=== PATIENT | male | born 1985 | race Caucasian/White ===

== ENCOUNTER 2016-11-26 09:06 | Emergency (ER) | payer OTHER ==
[2016-11-26 09:21] VITALS: BP 145/93
--- NOTE | 2016-11-26 09:31 | EDM.PDOC ---
ED HPI HEAD INJURY - General Chief Complaint: Head Injury Stated Complaint: CONCUSSION Time Seen by Provider: 11/26/16 09:21 Source of Information: Reports: Patient History Limitations: Reports: No limitations - History of Present Illness INITIAL COMMENTS - FREE TEXT/NARRATIVE: This 31 yo male patient reports to the ED from [facility] due to a slip on the ice, hitting the back of his head and having some memory difficulties. The patient reports he is feeling well at this time with no memory problems. The patient reports no additional symptoms or concerns at this time. Symptom Onset Date: 11/26/16 Symptom Onset Time: 08:30 Timing/Duration: Reports: Improving Location: Reports: occipital Quality: Reports: ache, dull Severity: mild Place of Occurrence: work ([employer]) Improves with: none Worsens with: none Context: Reports: fall Associated Symptoms: Reports: no other symptoms - Related Data Allergies/ADRs: Allergies Allergy/AdvReac Type Severity Reaction Status Date / Time No Known Allergies Allergy Verified 11/26/16 09:23 Home Meds: Home Meds . [No Known Home Meds] 11/26/16 [History] ED ROS GENERAL - Review of Systems Review Of Systems: ROS reveals no pertinent complaints other than HPI. ED EXAM, HEAD INJURY - Physical Exam Exam: See Below Exam Limited By: No limitations General Appearance: alert, WD/WN, no apparent distress Head: atraumatic, normocephalic Nexus Criteria: No: posterior, midline cervical tenderness, evidence of intoxication, altered level of consciousness, focal neurological deficit, painful distracting injuries Eyes: bilateral eye: EOMI, normal inspection, PERRL Ears: normal external exam, normal canal, hearing grossly normal, normal TMs Nose: normal inspection, normal mucousa, no blood Throat/Mouth: Normal inspection, Normal lips, Normal teeth, Normal gums, Normal oropharynx, Normal voice, No airway compromise Neck: non-tender, full range of motion, normal alignment, normal inspection Respiratory: no respiratory distress, lungs clear, normal breath sounds, no accessory muscle use, chest non-tender Cardiovascular: normal peripheral pulses, regular rate, rhythm, no edema, no gallop, no JVD, no murmur, no rub GI/Abdominal Exam (Abbreviated): normal bowel sounds, soft, non tender, no organomegaly, no distention, no abnormal bruit, no mass (Male) Exam: Deferred Rectal (Males) Exam: Deferred Back Exam: full range of motion, normal inspection, NT Extremities: no evidence of injury, normal range of motion, non-tender, no pedal edema, pelvis stable 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, no motor/sensory deficits, alert, normal mood/affect, oriented x 3 Skin: Normal color, Warm/dry - Alma Coma Score Best Eye Response (Simon): (4) open spontaneously Best Verbal Response (Alma): (5) oriented Best Motor Response (Alma): (6) obeys commands Alma Total: 15 Course - Vital Signs Last Recorded V/S: Last Vital Signs Temp 37.1 C 11/26/16 09:20 Pulse 88 11/26/16 09:20 Resp 20 11/26/16 09:20 BP 145/93 H 11/26/16 09:20 Pulse Ox 97 11/26/16 09:20 - Orders/Labs/Meds Orders: Active Orders 24 hr Category Date Time Status Head wo Cont [CT] Urgent Exams 11/26/16 09:24 Ordered Departure - Departure Time of Disposition: 09:52 Disposition: Home, Self-Care 01 Condition: fair Clinical Impression: Concussion with no loss of consciousness Instructions: Concussion, Adult, [id number] Forms: ED Department Discharge Care Plan Goals: The patient was advised of the examination and CT results during the visit. The patient was encouraged to resume regular activities. If the patient has any additional symptoms or concerns, the patient should follow-up with his primary care facility or return to the emergency department. - My Orders Last 24 Hours: My Active Orders 11/26/16 09:24 Head wo Cont [CT] Urgent - Assessment/Plan Last 24 Hours: My Active Orders 11/26/16 09:24 Head wo Cont [CT] Urgent
--- NOTE | 2016-11-26 11:34 | CT ---
CLINICAL HISTORY: 31-year-old male some "memory changes" after hitting the posterior aspect of the h ead. SCAN TECHNIQUE: Volume acquisition of data from an emergency unenhanced CT scan of the head obtained with the patient lying supine on the Siemens multislice CT scanner [place], [place]. All data archived in the PACS system for storage, reformatting and study. INTERPRETATION: Uniformly thick bony calvarium without sign of skull fracture, underlying brain cont usion or epidural/subdural hematoma. Symmetric normal velazquez-white matter pattern and underlying mirror-image normal ventricular system. No supratentorial or posterior fossa mass lesion. No hydrocephalus. No focal areas of ischemic infarct and no sign of acute intracerebral/intraventricular or subarachno id bleed. No abnormal extracerebral/intracranial epidural or subdural hematoma. Cerebellum and brainstem unremarkable. Normal mastoid sinuses. NOTE: Dependent air-fluid level left maxillary antrum consistent with acute sinusitis. CONCLUSION: Left maxillary sinusitis. No sign of acute skull fracture or closed head trauma.
== END 2016-11-26 10:03 | disposition home or self-care (01) ==
LOC: DL.ED 09:06
DX: S06.0X0A Concussion without loss of consciousness, initial encounter (principal); W00.0XXA Fall on same level due to ice and snow, initial encounter; Y99.0 Civilian activity done for income or pay
CPT/HCPCS: 70450; 99283